=== PATIENT | male | born 1975 | race Caucasian/White ===

== ENCOUNTER 2017-10-17 00:38 | Emergency (ER) | payer OTHER ==
[~2017-10-17] VITALS: Ht 205.7 cm; Wt 135.6 kg
[2017-10-17 01:31] LABS: HEMATOCRIT 39.3 % (38.0-50.0); HEMOGLOBIN 14.1 G/DL (12.5-16.6); MCH 31.3 PG (29.0-34.0); MCHC 35.9 G/DL (30.0-36.0); MCV 87.1 FL (86-99); PLATELET COUNT 165 K/uL (156-360); RBC DIS.WIDTH-CV 13.2 % (11.8-14.6); RBC DIS.WIDTH-SD 41.1 % (39-53); RED BLOOD COUNT 4.51 M/uL (4.00-5.50); WHITE BLOOD COUNT 8.3 K/uL (4.1-10.2)
[2017-10-17 01:51] LABS: ALBUMIN 4.2 g/dL (3.2-4.8); CHLORIDE 105 mEq/L (99-109); POTASSIUM 3.5 mEq/L (3.7-5.4); SODIUM 138 mEq/L (136-147)
[2017-10-17 01:54] LABS: GLUCOSE 109 mg/dL (70-99); TOTAL PROTEIN 7.1 g/dL (6.4-8.3)
[2017-10-17 01:56] LABS: TOTAL BILIRUBIN 1.1 mg/dL (0.0-1.0)
[2017-10-17 01:57] LABS: ALKALINE PHOSPHATASE 69 IU/L (3-129); CREATININE 1.1 mg/dL (0.6-1.3); GFR ESTIMATE (CALCULATED) > 59 mL/min/ (58.99-99999)
[2017-10-17 01:58] LABS: UREA NITROGEN (BUN) 21 mg/dL (9-23)
[2017-10-17 01:59] LABS: AST (GOT) 40 IU/L (2-34)
[2017-10-17 02:00] LABS: ALT (GPT) 76 IU/L (3-49)
[2017-10-17 02:06] LABS: TROP-I INTERPRETATION NEGATIVE; TROPONIN-I < 0.01 ng/mL (0.0-0.30)
[2017-10-17] MEDS ORDERED: HYDROCHLOROTHIA25 MG PO (02:49)
[2017-10-17 04:13] LABS: TROP-I INTERPRETATION NEGATIVE; TROPONIN-I < 0.01 ng/mL (0.0-0.30)
[2017-10-17 04:50] VITALS: BP 150/97
[2017-10-17 05:11] LABS: LIPASE 24 U/L (1.0-51.0)
== END 2017-10-17 04:51 | disposition home or self-care (01) ==
LOC: EME 00:38
PROVIDERS: Emergency Medicine
DX: I10 Essential (primary) hypertension (principal); R06.00 Dyspnea, unspecified; R51 Headache; R74.0 Nonspecific elevation of levels of transaminase and lactic acid dehydrogenase [LDH]
CPT/HCPCS: 70450; 71046; 80053; 83690; 84484; 85027; 93005; 99281; 99284